=== PATIENT | female | born 1975 | race Caucasian/White ===

== ENCOUNTER 2017-02-12 09:13 | Emergency (ER) | payer OTHER ==
[~2017-02-12] VITALS: Ht 152.4 cm; Wt 72.6 kg
[2017-02-12] MEDS ORDERED: IV NORMAL SALINE 1000 ML BAG IV ONE (09:30)
[2017-02-12] MEDS ORDERED: MECLIZINE HCL 25 MG TABLET PO ONE (09:30)
[2017-02-12] MEDS ORDERED: ONDANSETRON 4 MG/2 ML VIAL IV ONE (09:30)
[2017-02-12] MEDS ORDERED: DIAZEPAM 10 MG/2 ML DISP.SYRIN IV ONE (09:30)
[2017-02-12] MEDS ORDERED: DIAZEPAM 10 MG/2 ML DISP.SYRIN ONE (09:42)
[2017-02-12] MEDS ORDERED: ONDANSETRON 4 MG/2 ML VIAL ONE (09:42)
[2017-02-12] MEDS ORDERED: MECLIZINE HCL 25 MG TABLET ONE (09:42)
[2017-02-12 09:45] LABS: BASOPHILS % (AUTO) 0.2 % (0.0-2.0); EOSINOPHILS # (AUTO) 0.1 K/uL (0.0-0.7); EOSINOPHILS % (AUTO) 0.8 % (0.0-7.0); HEMATOCRIT 42.1 % (37-47); HEMOGLOBIN 13.7 G/DL (12.0-16.0); LYMPHOCYTES # (AUTO) 1.4 K/UL (0.8-4.8); LYMPHOCYTES % (AUTO) 15.3 % (20.5-51.5); MEAN CORPUSCULAR HEMOGLOBIN 26.6 UUG (27.0-31.0); MEAN CORPUSCULAR HGB CONC 33 g/dL (32.0-37.0); MEAN CORPUSCULAR VOLUME 81.5 FL (81.0-99.0); MONOCYTES # (AUTO) 0.5 K/UL (0.1-1.30); MONOCYTES % (AUTO) 4.8 % (0.0-11.0); NEUTROPHILS # (AUTO) 7.4 K/UL (1.8-8.9); NEUTROPHILS % (AUTO) 78.9 % (38.5-71.5); PLATELET COUNT (AUTO) 228 K/UL (150-450); RED BLOOD CELL COUNT(AUTO) 5.17 MIL/UL (4.2-5.4); WHITE BLOOD COUNT (AUTO) 9.4 K/UL (4.0-11.2)
[2017-02-12 09:49] LABS: CREATININE 0.7 mg/dL (0.6-1.3); POTASSIUM 3.9 mmol/L (3.5-5.1)
[2017-02-12 09:55] LABS: BILIRUBIN,DIRECT 0.1 mg/dL (0.0-0.2); BILIRUBIN,TOTAL 0.5 mg/dL (0.2-1.0); TOTAL PROTEIN, SERUM 7.7 g/dL (6.4-8.2)
[2017-02-12 10:58] LABS: *BILIRUBIN,URIN NEGATIVE (NEGATIVE); *BLOOD, URINE NEGATIVE (NEGATIVE); *CLARITY,URINE CLEAR (CLEAR); *COLOR,URINE YELLOW (YELLOW); *KETONES,URINE NEGATIVE (NEGATIVE); *PROTEIN,URINE NEGATIVE (NEGATIVE); *UROBILINOGEN,URINE 0.2 E.U./dl (NORMAL); LEUKOCYTE ESTERASE ,URINE NEGATIVE (NEGATIVE); NITRITE, URINE NEGATIVE (NEGATIVE); PH,URINE 6.5 (5.0-8.0); UGLUCOSE NEGATIVE (NEGATIVE)
[2017-02-12 11:00] LABS: *URINE HCG, QUAL NEGATIVE (NEGATIVE)
[2017-02-12 11:17] LABS: BACTERIA,URINE FEW /HPF (NONE SEEN); RBC,URINE 0-3 /HPF (0-3); SQUAMOUS EPITHELIAL CELL,UR FEW /HPF (NONE SEEN); WBC,URINE 0-3 /HPF (0-3)
--- NOTE | 2017-02-12 11:19 | NUR ---
Patient discharged to home in stable conditon. Written and verbal after care instructions given. Patient verbalizes understanding of instructions.PT SAYS FEELS BETTER, PT WITH . PT NOT DRIVING
[2017-02-12 11:23] VITALS: BP 111/61
== END 2017-02-12 11:24 | disposition home or self-care (01) ==
LOC: ER 09:13
DX: R42 Dizziness and giddiness (principal); R11.10 Vomiting, unspecified; Z88.0 Allergy status to penicillin
CPT/HCPCS: 36415; 83690; 84703; 85025; A4663; J2405; J3360; J7030; J8597

== ENCOUNTER 2018-06-27 07:50 | Inpatient (IN) | payer OTHER ==
[~2018-06-27] VITALS: Ht 152.4 cm; Wt 54.9 kg
--- NOTE | 2018-06-27 08:26 | NUR ---
ekg will be done when the pt is more comfortable per pt request.
[2018-06-27] MEDS ORDERED: IV NORMAL SALINE 1000 ML BAG IV ONE (08:30)
[2018-06-27] MEDS ORDERED: ONDANSETRON 4 MG/2 ML VIAL IV ONE (08:30)
[2018-06-27 08:38] LABS: BASOPHILS # (AUTO) 0.1 K/uL (0.0-8.0); BASOPHILS % (AUTO) 0.5 % (0.0-2.0); EOSINOPHILS % (AUTO) 0.1 % (0.0-7.0); HEMATOCRIT 39.2 % (31.2-41.9); HEMOGLOBIN 12.9 g/dL (10.9-14.3); LYMPHOCYTES # (AUTO) 1.1 K/uL (20.0-40.0); MEAN CORPUSCULAR HEMOGLOBIN 27.4 uug (24.7-32.8); MEAN CORPUSCULAR HGB CONC 33 g/dL (32.3-35.6); MEAN CORPUSCULAR VOLUME 83.2 fL (75.5-95.3); MONOCYTES # (AUTO) 0.4 K/uL (2.0-10.0); MONOCYTES % (AUTO) 3.3 % (0.0-11.0); NEUTROPHILS # (AUTO) 10.9 K/uL (1.8-8.9); NEUTROPHILS % (AUTO) 87.1 % (38.5-71.5); PLATELET COUNT (AUTO) 231 K/uL (179-408); RED BLOOD CELL COUNT(AUTO) 4.71 MIL/uL (3.63-4.92); WHITE BLOOD COUNT (AUTO) 12.6 K/uL (3.8-11.8)
[2018-06-27 08:54] LABS: ALANINE AMINOTRANSFERASE 20 U/L (14-59); ALKALINE PHOSPHATASE 59 U/L (50-136); ASPARTATE AMINOTRANSFERASE 19 U/L (15-37); BILIRUBIN,DIRECT 0.1 mg/dL (0.0-0.2); BILIRUBIN,TOTAL 0.4 mg/dL (0.2-1.0); CARBON DIOXIDE 18 mmol/L (21-32); CHLORIDE 106 mmol/L (98-107); CREATININE 0.8 mg/dL (0.6-1.3); GLUCOSE 152 mg/dL (74-106); POTASSIUM 3.4 mmol/L (3.5-5.1); TOTAL PROTEIN, SERUM 7.3 g/dL (6.4-8.2); UREA NITROGEN, BLOOD 15 mg/dL (7-18)
[2018-06-27 08:56] LABS: ACETAMINOPHEN < 2.0 ug/mL (10-30)
[2018-06-27 09:29] LABS: ETHANOL < 3 MG/DL (0-0)
[2018-06-27] MEDS ORDERED: ONDANSETRON 4 MG/2 ML VIAL ONE (09:34)
[2018-06-27 09:40] LABS: THYROID STIMULATING HORMONE 1.224 mIU/mL (0.358-3.740)
--- NOTE | 2018-06-27 09:57 | NUR ---
pt feels very sick and unable to ambulate to bathroom at this time. notified. Addendum: 06/27/18 at 1105 by NIKA pt unable to void at this point.
--- NOTE | 2018-06-27 11:06 | NUR ---
assisted the pt to ambulate to bathroom, unsteadygait.
--- NOTE | 2018-06-27 11:13 | NUR ---
urine sent to lab. pt having her period going on.
--- NOTE | 2018-06-27 11:14 | NUR ---
trnasfered pt to floor in stable condition.
--- NOTE | 2018-06-27 11:30 | NUR ---
Admitted a 43 y/o, F to room 217, under the care of Dr. Chauhan. Diagnosis of AMS, Seizure and Vertigo. Patient is alert and oriented x4, in no acute distress. Afebrile. NSR on monitor. IV site on RAC patent. Denies chest pain or SOB. Call placed to Dr. Chauhan, admission orders received, noted and carried out. Family at bedside. Routine admission questions and assessment done. Explained the use of siderails and call light button, hourly rounding. Will continue to monitor
[2018-06-27 11:32] LABS: *BILIRUBIN,URIN NEGATIVE (NEGATIVE); *BLOOD, URINE 3+ (NEGATIVE); *CLARITY,URINE CLOUDY (CLEAR); *COLOR,URINE PINK (YELLOW); *KETONES,URINE NEGATIVE (NEGATIVE); *PROTEIN,URINE 1+ (NEGATIVE); *UROBILINOGEN,URINE 0.2 E.U./dl (NORMAL); LEUKOCYTE ESTERASE ,URINE NEGATIVE (NEGATIVE); NITRITE, URINE NEGATIVE (NEGATIVE); UGLUCOSE NEGATIVE (NEGATIVE)
[2018-06-27 11:33] LABS: *AMPHETAMINE, URINE NEGATIVE (NEGATIVE); *BARBITURATE, URINE NEGATIVE (NEGATIVE); *CANNABINOID, URINE POSITIVE (NEGATIVE); *COCCAINE, URINE NEGATIVE (NEGATIVE); *OPIATE, URINE NEGATIVE (NEGATIVE); *PHENCYCLIDINE SCREEN,URINE NEGATIVE (NEGATIVE)
[2018-06-27 11:38] LABS: RBC,URINE TNTC /HPF (0-3)
[2018-06-27 11:41] LABS: BACTERIA,URINE MODERATE /HPF (NONE SEEN); SQUAMOUS EPITHELIAL CELL,UR FEW /HPF (NONE SEEN); WBC,URINE 20-50 /HPF (0-3)
[2018-06-27 11:42] LABS: MUCUS,URINE MODERATE /LPF (0-FEW)
[2018-06-27 11:55] VITALS: BP 92/52
[2018-06-27] MEDS ORDERED: LORAZEPAM 2 MG/1 ML VIAL IV PRN ×2 (12:45)
[2018-06-27] MEDS ORDERED: MORPHINE SULFATE 2 MG/1 ML DISP.SYRIN IV PRN (12:45)
[2018-06-27] MEDS ORDERED: ONDANSETRON 4 MG/2 ML VIAL IV PRN (12:45)
[2018-06-27] MEDS: POTASSIUM CHLORIDE 20 MEQ in IV NS 1000 ML 1,000 ML IV PRN (14:25)
--- NOTE | 2018-06-27 17:38 | NUR ---
End of shift note: patient is alert and oriented x4, in no acute distress. Denies any pain or SOB at this time. IV site on RAC patent, IV fluids running at 100cc/hr. Remains NSR on monitor. Will continue to monitor
--- NOTE | 2018-06-27 19:20 | NUR ---
RECEIVED PT AWAKE, ALERT, AND ORIENTEDX4. PT SHOWS NO SIGNS OF DISTRESS. IV INTACT AND PATENT. CALL LIGHT WITHIN REACH. BED ALARM ON AND IN LOW POSITION. SAFETY AND COMFORT PROVIDED. WILL CONTINUE TO MONITOR.
[2018-06-27 20:00] VITALS: BP 89/42
[2018-06-27] MEDS: ACETAMINOPHEN 325 MG TABLET PO PRN (21:12)
[2018-06-28] VITALS: BP 80/34
[2018-06-28] MEDS: POTASSIUM CHLORIDE 20 MEQ in IV NS 1000 ML 1,000 ML IV PRN (00:35)
[2018-06-28 04:00] VITALS: BP 90/36
[2018-06-28] MEDS: PANTOPRAZOLE SODIUM 40 MG TABLET.DR PO SCH (06:23)
--- NOTE | 2018-06-28 06:32 | NUR ---
PT SLEPT THROUGHOUT THE SHIFT. PT SHOWS NO SIGNS OF DISTRESS. IV INTACT.SEIZURE PRECAUTION OBSERVED. PRESCRIBED MEDICATION GIVEN AND PT TOLERATED IT WELL. CALL LIGHT WITHIN REACH. SAFETY AND COMFORT PROVIDED. WILL CONTINUE TO MONITOR.
[2018-06-28 06:34] LABS: BASOPHILS % (AUTO) 0.5 % (0.0-2.0); EOSINOPHILS # (AUTO) 0.1 K/uL (0.0-0.7); EOSINOPHILS % (AUTO) 1.4 % (0.0-7.0); LYMPHOCYTES # (AUTO) 1.8 K/uL (20.0-40.0); LYMPHOCYTES % (AUTO) 27.4 % (20.5-51.5); MEAN CORPUSCULAR HEMOGLOBIN 27.8 uug (24.7-32.8); MEAN CORPUSCULAR HGB CONC 33 g/dL (32.3-35.6); MEAN CORPUSCULAR VOLUME 83.8 fL (75.5-95.3); MONOCYTES # (AUTO) 0.5 K/uL (2.0-10.0); MONOCYTES % (AUTO) 7.7 % (0.0-11.0); NEUTROPHILS # (AUTO) 4.2 K/uL (1.8-8.9); PLATELET COUNT (AUTO) 198 K/uL (179-408); RED BLOOD CELL COUNT(AUTO) 4.01 MIL/uL (3.63-4.92)
[2018-06-28 06:44] LABS: BILIRUBIN,TOTAL 0.4 mg/dL (0.2-1.0); CREATININE 0.7 mg/dL (0.6-1.3); MAGNESIUM 1.8 mg/dL (1.8-2.4); PHOSPHOROUS 2.8 mg/dL (2.5-4.9); POTASSIUM 3.9 mmol/L (3.5-5.1); TOTAL PROTEIN, SERUM 5.6 g/dL (6.4-8.2)
[2018-06-28 06:47] LABS: HEMOGLOBIN 11.1 g/dL (10.9-14.3); WHITE BLOOD COUNT (AUTO) 6.7 K/uL (3.8-11.8)
[2018-06-28 06:48] LABS: HEMATOCRIT 33.6 % (31.2-41.9)
--- NOTE | 2018-06-28 07:10 | NUR ---
Received patient in bed, awake, alert and oriented x4, in no acute distress. Denies chest pain or SOB at this time. NSR on monitor. Seizure precaution in place. Iv fluids running at 100cc/hr. IV site on RAC patent. Will continue to monitor
[2018-06-28] MEDS: LEVOFLOXACIN 500 MG/D5W 500 MG in PREMIXED 1 EACH IV SCH (08:21)
[2018-06-28 11:40] VITALS: BP 88/46
[2018-06-28] MEDS ORDERED: IV NS 1000 ML 1,000 ML IV PRN (12:15)
--- NOTE | 2018-06-28 13:00 | NUR ---
Patient went off the unit to MRI via ambulance in stable condition
--- NOTE | 2018-06-28 14:20 | NUR ---
Patient came back to the unit from MRI via ambulance in stable condition
[2018-06-28] MEDS: IV NS 1000 ML 1,000 ML IV PRN (14:46)
[2018-06-28 15:11] VITALS: BP 99/58
[2018-06-28 15:30] VITALS: BP 94/48
--- NOTE | 2018-06-28 17:27 | NUR ---
End of shift note: Patient is alert and oriented x4, in no acute distress. No acute change of condition noted. NSR on monitor. Seizure precaution in place. All needs attended and met. Will continue to monitor.
[2018-06-28] MEDS ORDERED: CARISOPRODOL 350 MG TABLET PO PRN (18:15)
--- NOTE | 2018-06-28 19:10 | NUR ---
RECEIVED PT AWAKE, ALERT, ORIENTEDX4. PT SHOWS NO SIGNS AND DISTRESS.IV INTACT AND PATENT. CALL LIGHT WITHIN REACH. SAFETY AND COMFORT PROVIDED.SEIZURE PRECAUTION . WILL CONTINUE TO MONITOR.
[2018-06-28] MEDS: ACETAMINOPHEN 325 MG TABLET PO PRN (19:56)
[2018-06-28 20:22] VITALS: BP 99/58
[2018-06-29 00:17] VITALS: BP 99/62
[2018-06-29 04:00] VITALS: BP 94/53
[2018-06-29] MEDS: IV NS 1000 ML 1,000 ML IV PRN (06:21)
--- NOTE | 2018-06-29 06:27 | NUR ---
PT SLEPT THROUGHOUT THE SHIFT..PT SHOWS NO SIGNS AND DISTRESS.IV INTACT AND PATENT.PRESCRIBED MEDICATION GIVEN AND PT TOLERATED IT WELL. PT WAS GIVEN SOMA AND TYLENOL LAST NIGHT. PT TOLERATED THE MEDICATION AND RELIEVE THE PAIN. SEIZURE PRECAUTION.CALL LIGHT WITHIN REACH. SAFETY AND COMFORT PROVIDED. WILL CONTINUE TO MONITOR.
[2018-06-29] MEDS: PANTOPRAZOLE SODIUM 40 MG TABLET.DR PO SCH (06:36)
[2018-06-29 06:37] LABS: BASOPHILS % (AUTO) 0.7 % (0.0-2.0); EOSINOPHILS # (AUTO) 0.1 K/uL (0.0-0.7); EOSINOPHILS % (AUTO) 1.6 % (0.0-7.0); HEMATOCRIT 35.9 % (31.2-41.9); LYMPHOCYTES # (AUTO) 1.9 K/uL (20.0-40.0); LYMPHOCYTES % (AUTO) 32.2 % (20.5-51.5); MEAN CORPUSCULAR HEMOGLOBIN 28.1 uug (24.7-32.8); MEAN CORPUSCULAR HGB CONC 34 g/dL (32.3-35.6); MEAN CORPUSCULAR VOLUME 83.9 fL (75.5-95.3); MONOCYTES # (AUTO) 0.5 K/uL (2.0-10.0); MONOCYTES % (AUTO) 7.8 % (0.0-11.0); NEUTROPHILS # (AUTO) 3.5 K/uL (1.8-8.9); NEUTROPHILS % (AUTO) 57.7 % (38.5-71.5); PLATELET COUNT (AUTO) 200 K/uL (179-408); RED BLOOD CELL COUNT(AUTO) 4.28 MIL/uL (3.63-4.92)
[2018-06-29 06:54] LABS: CREATININE 0.7 mg/dL (0.6-1.3); MAGNESIUM 1.7 mg/dL (1.8-2.4); PHOSPHOROUS 3.4 mg/dL (2.5-4.9); POTASSIUM 3.7 mmol/L (3.5-5.1)
[2018-06-29] MEDS: LEVOFLOXACIN 500 MG/D5W 500 MG in PREMIXED 1 EACH IV SCH (08:31)
[2018-06-29 11:28] VITALS: BP 101/38
[2018-06-29 15:23] VITALS: BP 126/36
[2018-06-29] MEDS ORDERED: MAGNESIUM OXIDE 400 MG TABLET PO ONE (16:00)
--- NOTE | 2018-06-29 17:54 | NUR ---
patient has been discharged home. patient is in stable condition. patient denies any pain/discomfort. Patient shows to no signs/symptoms of respiratory distress. Left with exit care packet, belongings and valuable. patient IV and ID band was removed. patient refused scheduled follow up appointment and stated she will make her own follow up appointment with her PCP. Patient went home with a friend. patient was wheel chair down stair to lobby where friend picked her up in the front. Patient verbalized understanding of MD recommendations.
[2018-06-29 17:59] VITALS: BP 99/53
== END 2018-06-29 17:50 | disposition home or self-care (01) | DRG 111 ==
LOC: ER 07:50 → TELE 10:32
PROVIDERS: ADMIT Internal Medicine; ATTEND Internal Medicine
DX: H81.399 Other peripheral vertigo, unspecified ear (principal); R56.9 Unspecified convulsions; E87.1 Hypo-osmolality and hyponatremia; E87.2 Acidosis; H83.90 Unspecified disease of inner ear, unspecified ear; G43.909 Migraine, unspecified, not intractable, without status migrainosus; R42 Dizziness and giddiness; D72.829 Elevated white blood cell count, unspecified; E87.6 Hypokalemia; R73.9 Hyperglycemia, unspecified; R32 Unspecified urinary incontinence; R94.01 Abnormal electroencephalogram [EEG]
CPT/HCPCS: 36415; 70030-TC; 70450; 70553; 71045; 80307; 83605; 83735; 84100; 84443; 85025; 85730; 87040; 87086; 93005; 95819; A4663; G0378; G0480; G0480-TC; J1956; J2405; J3480; J7030

== ENCOUNTER 2019-06-05 07:01 | Emergency (ER) | payer MEDICAID, OTHER ==
[~2019-06-05] VITALS: Ht 162.6 cm; Wt 54.4 kg
[2019-06-05] MEDS ORDERED: MECLIZINE HCL 25 MG TABLET ONE (07:30)
[2019-06-05] MEDS ORDERED: ONDANSETRON ODT 4 MG TAB.RAPDIS ONE (07:30)
[2019-06-05] MEDS ORDERED: MECLIZINE HCL 25 MG TABLET PO ONE (07:30)
[2019-06-05] MEDS ORDERED: ONDANSETRON ODT 4 MG TAB.RAPDIS SL ONE (07:30)
--- NOTE | 2019-06-05 07:51 | NUR ---
Patient transported to CT in stable condition.
[2019-06-05 07:55] LABS: BASOPHILS % (AUTO) 0.7 % (0.0-2.0); EOSINOPHILS # (AUTO) 0.1 K/uL (0.0-0.7); EOSINOPHILS % (AUTO) 1.2 % (0.0-7.0); HEMATOCRIT 38.9 % (31.2-41.9); HEMOGLOBIN 12.5 g/dL (10.9-14.3); LYMPHOCYTES # (AUTO) 1.2 K/uL (20.0-40.0); LYMPHOCYTES % (AUTO) 18.3 % (20.5-51.5); MEAN CORPUSCULAR HEMOGLOBIN 26.8 uug (24.7-32.8); MEAN CORPUSCULAR HGB CONC 32 g/dL (32.3-35.6); MEAN CORPUSCULAR VOLUME 83.4 fL (75.5-95.3); MONOCYTES # (AUTO) 0.4 K/uL (2.0-10.0); MONOCYTES % (AUTO) 6.3 % (0.0-11.0); NEUTROPHILS % (AUTO) 73.5 % (38.5-71.5); PLATELET COUNT (AUTO) 214 K/uL (179-408); RED BLOOD CELL COUNT(AUTO) 4.66 MIL/uL (3.63-4.92); WHITE BLOOD COUNT (AUTO) 6.8 K/uL (3.8-11.8)
--- NOTE | 2019-06-05 07:57 | NUR ---
Patient back in room from CT
[2019-06-05 08:03] LABS: CREATININE 0.8 mg/dL (0.6-1.3); POTASSIUM 3.7 mmol/L (3.5-5.1)
--- NOTE | 2019-06-05 08:40 | NUR ---
Patient discharged to home in stable conditon. Written and verbal after care instructions given. Patient verbalizes understanding of instructions. Patient ambulated with stable gait.
[2019-06-05 08:41] VITALS: BP 110/63
== END 2019-06-05 08:41 | disposition home or self-care (01) ==
LOC: ER 07:04
DX: R42 Dizziness and giddiness (principal); R20.2 Paresthesia of skin; F17.200 Nicotine dependence, unspecified, uncomplicated; Z88.0 Allergy status to penicillin
CPT/HCPCS: 36415; 70030-TC; 70450; 85025; 93005; A4663; J8597; Q0162

== ENCOUNTER 2019-09-11 08:07 | Emergency (ER) | payer MEDICAID ==
[~2019-09-11] VITALS: Ht 152.4 cm; Wt 54.4 kg
--- NOTE | 2019-09-11 08:36 | NUR ---
Dr Larson at the bedside for MSE.
[2019-09-11 08:54] VITALS: BP 105/71
--- NOTE | 2019-09-11 08:55 | NUR ---
Patient discharged to home in stable conditon. Written and verbal after care instructions given. Patient verbalizes understanding of instructions.
== END 2019-09-11 08:55 | disposition home or self-care (01) ==
LOC: ER 08:07
DX: B34.9 Viral infection, unspecified (principal); F17.200 Nicotine dependence, unspecified, uncomplicated; Z88.0 Allergy status to penicillin
CPT/HCPCS: A4663

== ENCOUNTER 2020-07-01 09:30 | Emergency (ER) | payer MEDICAID, OTHER ==
[~2020-07-01] VITALS: Ht 152.4 cm; Wt 54.4 kg
[2020-07-01] MEDS ORDERED: METOCLOPRAMIDE HCL 10 MG/2 ML VIAL IV ONE (10:00)
[2020-07-01] MEDS ORDERED: IV NORMAL SALINE 1000 ML BAG IV ONE (10:00)
[2020-07-01] MEDS ORDERED: METOCLOPRAMIDE HCL 10 MG/2 ML VIAL ONE (10:23)
[2020-07-01 10:32] LABS: BASOPHILS # (AUTO) 0.1 K/uL (0.0-8.0); BASOPHILS % (AUTO) 0.5 % (0.0-2.0); EOSINOPHILS # (AUTO) 0.1 K/uL (0.0-0.7); EOSINOPHILS % (AUTO) 0.6 % (0.0-7.0); HEMATOCRIT 40.1 % (31.2-41.9); HEMOGLOBIN 13.5 g/dL (10.9-14.3); LYMPHOCYTES # (AUTO) 1.4 K/uL (20.0-40.0); LYMPHOCYTES % (AUTO) 12.4 % (20.5-51.5); MEAN CORPUSCULAR HEMOGLOBIN 27.8 uug (24.7-32.8); MEAN CORPUSCULAR HGB CONC 34 g/dL (32.3-35.6); MEAN CORPUSCULAR VOLUME 82.6 fL (75.5-95.3); MONOCYTES # (AUTO) 0.5 K/uL (2.0-10.0); MONOCYTES % (AUTO) 4.7 % (0.0-11.0); NEUTROPHILS # (AUTO) 9.2 K/uL (1.8-8.9); NEUTROPHILS % (AUTO) 81.8 % (38.5-71.5); PLATELET COUNT (AUTO) 251 K/uL (179-408); RED BLOOD CELL COUNT(AUTO) 4.85 MIL/uL (3.63-4.92); WHITE BLOOD COUNT (AUTO) 11.2 K/uL (3.8-11.8)
[2020-07-01 10:38] LABS: CREATININE 0.8 mg/dL (0.6-1.3); POTASSIUM 3.5 mmol/L (3.5-5.1)
[2020-07-01 10:38] LABS: *BLOOD, URINE NEGATIVE (NEGATIVE); *CLARITY,URINE SLIGHTLY CLOUDY (CLEAR); *COLOR,URINE RED (YELLOW); *KETONES,URINE 1+ (NEGATIVE); LEUKOCYTE ESTERASE ,URINE 3+ (NEGATIVE); NITRITE, URINE POSITIVE (NEGATIVE); UGLUCOSE 1+ (NEGATIVE)
[2020-07-01 10:39] LABS: *BILIRUBIN,URIN 1+ (NEGATIVE)
[2020-07-01 10:44] LABS: BILIRUBIN,DIRECT 0.1 mg/dL (0.0-0.2); BILIRUBIN,TOTAL 0.5 mg/dL (0.2-1.0); TOTAL PROTEIN, SERUM 7.4 g/dL (6.4-8.2)
--- NOTE | 2020-07-01 11:02 | NUR ---
pt says feels better and is ready to go home. Patient discharged to home in stable condition. Written and verbal after care instructions given. Patient verbalizes understanding of instructions. Stressed follow up or return to ER for worsening s/s.pt walks in steady gait. deneis n/v/pain or any other complain.
[2020-07-01 11:04] VITALS: BP 106/66
[2020-07-01 12:57] LABS: RBC,URINE 0-3 /HPF (0-3)
[2020-07-01 12:58] LABS: BACTERIA,URINE MODERATE /HPF (NONE SEEN); SQUAMOUS EPITHELIAL CELL,UR FEW /HPF (NONE SEEN); WBC,URINE 20-50 /HPF (0-3)
== END 2020-07-01 11:05 | disposition home or self-care (01) ==
LOC: ER 09:30
DX: R42 Dizziness and giddiness (principal); N39.0 Urinary tract infection, site not specified; R00.1 Bradycardia, unspecified; Z88.0 Allergy status to penicillin; F41.1 Generalized anxiety disorder; F43.0 Acute stress reaction
CPT/HCPCS: 36415; 71045; 80048; 80076; 81001; 84484; 85025; 85379; 85730; 87086; 93005; 96361; 96374; 99285; J2765; 70030-TC; A4663; J7030

== ENCOUNTER 2020-07-04 08:04 | Emergency (ER) | payer MEDICAID ==
[~2020-07-04] VITALS: Ht 152.4 cm; Wt 54.4 kg
--- NOTE | 2020-07-04 08:06 | NUR ---
MD@bedside, medical screening exam in progress
--- NOTE | 2020-07-04 08:20 | NUR ---
1st contact with patient: she is AOx4, anxious, mild hyperventilation noted, c/o right sided flank pains, intermittent & about 5-8/10 in pain scale. Patient admits to starting her prescribed oral antibiotic medicines just last night. Urine specimen was requested. Comfort and safety measures maintained.
[2020-07-04] MEDS ORDERED: ONDANSETRON 4 MG/2 ML VIAL ONE ×2 (08:26→09:46)
[2020-07-04] MEDS ORDERED: IV NORMAL SALINE 1000 ML BAG IV ONE (08:30)
[2020-07-04] MEDS ORDERED: ONDANSETRON 4 MG/2 ML VIAL IV ONE ×2 (08:30→09:45)
--- NOTE | 2020-07-04 08:36 | NUR ---
Patient added mild dryness in the throat and discomfort@R ear. Patient said that she is also madyson-menopausing with hx of mild vertigo. Listening ear provided.
[2020-07-04 08:54] LABS: BASOPHILS % (AUTO) 0.3 % (0.0-2.0); EOSINOPHILS # (AUTO) 0.1 K/uL (0.0-0.7); EOSINOPHILS % (AUTO) 0.6 % (0.0-7.0); HEMATOCRIT 38.8 % (31.2-41.9); HEMOGLOBIN 13.3 g/dL (10.9-14.3); LYMPHOCYTES # (AUTO) 1.3 K/uL (20.0-40.0); LYMPHOCYTES % (AUTO) 12.8 % (20.5-51.5); MEAN CORPUSCULAR HGB CONC 34 g/dL (32.3-35.6); MEAN CORPUSCULAR VOLUME 81.8 fL (75.5-95.3); MONOCYTES # (AUTO) 0.5 K/uL (2.0-10.0); MONOCYTES % (AUTO) 4.6 % (0.0-11.0); NEUTROPHILS # (AUTO) 8.5 K/uL (1.8-8.9); NEUTROPHILS % (AUTO) 81.7 % (38.5-71.5); PLATELET COUNT (AUTO) 237 K/uL (179-408); RED BLOOD CELL COUNT(AUTO) 4.74 MIL/uL (3.63-4.92); WHITE BLOOD COUNT (AUTO) 10.5 K/uL (3.8-11.8)
[2020-07-04 09:00] LABS: BILIRUBIN,DIRECT 0.2 mg/dL (0.0-0.2); BILIRUBIN,TOTAL 0.6 mg/dL (0.2-1.0); CREATININE 0.8 mg/dL (0.6-1.3); POTASSIUM 3.4 mmol/L (3.5-5.1); TOTAL PROTEIN, SERUM 7.3 g/dL (6.4-8.2)
--- NOTE | 2020-07-04 09:01 | NUR ---
Patient is resting comfortably on gurney with eyes closed, pending results and disposition.
[2020-07-04 09:02] LABS: *BILIRUBIN,URIN NEGATIVE (NEGATIVE); *BLOOD, URINE NEGATIVE (NEGATIVE); *CLARITY,URINE CLEAR (CLEAR); *COLOR,URINE YELLOW (YELLOW); *KETONES,URINE 4+ (NEGATIVE); *UROBILINOGEN,URINE 0.2 E.U./dl (NORMAL); LEUKOCYTE ESTERASE ,URINE NEGATIVE (NEGATIVE); NITRITE, URINE POSITIVE (NEGATIVE); UGLUCOSE NEGATIVE (NEGATIVE)
[2020-07-04 09:08] LABS: *URINE HCG, QUAL NEG (NEGATIVE)
--- NOTE | 2020-07-04 09:09 | NUR ---
Per nursing cloth grader supervisor Chikis, this patient's spouse called and started cursing over the phone."...F you! I'll angel you. I will call my booth supervisor. I am recording this conversation."
--- NOTE | 2020-07-04 09:11 | NUR ---
Patient and MD notified re: spouse's recent phone call with our nursing supervisor of research.
--- NOTE | 2020-07-04 10:09 | NUR ---
Patient is eating saltine crackers & drinking apple juice. Patient denies nausea@this time.
--- NOTE | 2020-07-04 10:18 | NUR ---
Patient is for discharge home per MD but patient wants to stay "a little longer" in ER. MD notified.
--- NOTE | 2020-07-04 10:42 | NUR ---
No vomiting or diarrhea episodes seen while in ER. Patient denies nausea@this time.
--- NOTE | 2020-07-04 10:49 | NUR ---
Patient ambulated to the bathroom (voided twice.) IV was removed. Catheter intact and site benign. Pressure and 4x4 gauze was applied to site. No bleeding noted. PATIENT IS PAIN FREE AT THIS TIME. Patient discharged to home in stable condition & steady gait. Written and verbal after care instructions given to patient with copies of all the tests' results provided. Patient verbalized understanding & compliance of instructions. Stressed follow up with her primary doctor or return to ER for worsening s/s.
[2020-07-04 14:48] LABS: BACTERIA,URINE FEW /HPF (NONE SEEN); RBC,URINE NONE SEEN /HPF (0-3); SQUAMOUS EPITHELIAL CELL,UR FEW /HPF (NONE SEEN); WBC,URINE 0-3 /HPF (0-3)
== END 2020-07-04 10:52 | disposition home or self-care (01) ==
LOC: ER 08:04
DX: N39.0 Urinary tract infection, site not specified (principal); R11.2 Nausea with vomiting, unspecified; E87.6 Hypokalemia; R19.7 Diarrhea, unspecified; Z88.0 Allergy status to penicillin; Z88.1 Allergy status to other antibiotic agents
CPT/HCPCS: 36415; 80048; 80076; 81001; 83690; 84703; 85025; 87086; 96374; 96376; 99284; J2405 ×2; A4663; J7030

== ENCOUNTER 2020-08-10 23:18 | Emergency (ER) | payer MEDICAID, OTHER ==
[~2020-08-10] VITALS: Ht 152.4 cm; Wt 49.9 kg
[2020-08-10] MEDS ORDERED: FLUT16SP2 NS (23:37)
[2020-08-10] MEDS ORDERED: POTA20TA10 PO (23:37)
[2020-08-10] MEDS ORDERED: PHEN95TA15 PO (23:38)
[2020-08-10] MEDS ORDERED: ONDA4TAB8 SL (23:38)
--- NOTE | 2020-08-10 23:59 | NUR ---
at bedside for assessment
[2020-08-11] MEDS ORDERED: LORAZEPAM 0.5 MG TABLET PO ONE (00:15)
[2020-08-11] MEDS ORDERED: LORAZEPAM 0.5 MG TABLET ONE (00:17)
[2020-08-11 00:45] LABS: CREATININE 0.8 mg/dL (0.6-1.3); POTASSIUM 3.8 mmol/L (3.5-5.1)
--- NOTE | 2020-08-11 01:58 | NUR ---
Patient discharged to home in stable condition. Transported by wheelchair. Written and verbal after care instructions given. Patient verbalizes understanding of instructions. Stressed follow up or return to ER for worsening s/s.
[2020-08-11 02:05] VITALS: BP 110/52
== END 2020-08-11 02:00 | disposition home or self-care (01) ==
LOC: ER 23:22
DX: F43.9 Reaction to severe stress, unspecified (principal); R00.0 Tachycardia, unspecified; Z88.1 Allergy status to other antibiotic agents; Z88.0 Allergy status to penicillin; Z88.8 Allergy status to other drugs, medicaments and biological substances
CPT/HCPCS: 36415; 93005

== ENCOUNTER 2020-08-12 05:13 | Emergency (ER) | payer MEDICAID, OTHER ==
[~2020-08-12] VITALS: Ht 165.1 cm; Wt 52.6 kg
[~2020-08-12 05:13] MED LIST: FLUT16SP2 NS; ONDA4TAB8 SL; PHEN95TA15 PO; POTA20TA10 PO
[2020-08-12] MEDS ORDERED: LORAZEPAM 2 MG/1 ML VIAL IV ONE (05:30)
[2020-08-12] MEDS ORDERED: IV NORMAL SALINE 1000 ML BAG IV ONE (05:30)
[2020-08-12] MEDS ORDERED: LORAZEPAM 2 MG/1 ML VIAL ONE (05:53)
--- NOTE | 2020-08-12 06:03 | NUR ---
EKG DONE, SALINE LOCK PLAV=MARINA, 1 L 0.9NS INFUSING, 1 MG ATIVAN ADMINISTERED, MONITOR SHOWS NSR. PT ASLEEP,EYES CLOSED.
[2020-08-12 06:08] LABS: POTASSIUM 3.8 mmol/L (3.5-5.1)
--- NOTE | 2020-08-12 07:02 | NUR ---
PT SLEEPING, EYES CLOSED, 1L 0.9NS INFUSED AND 1 MG ATIVAN ADMINISTERED EALIER, MONITOR SHOWS NSR.
--- NOTE | 2020-08-12 07:03 | NUR ---
SBAR REPORT TO AM SHIFT.
[2020-08-12 08:57] VITALS: BP 117/78
== END 2020-08-12 09:19 | disposition home or self-care (01) ==
LOC: ER 05:16
DX: F43.9 Reaction to severe stress, unspecified (principal); F45.9 Somatoform disorder, unspecified; Z88.1 Allergy status to other antibiotic agents; Z88.8 Allergy status to other drugs, medicaments and biological substances; Z79.899 Other long term (current) drug therapy
CPT/HCPCS: 36415; 80048; 93005; 96361; 96374; 99284; J2060; A4663; J7030